=== PATIENT | female | born 1970 | race Two or more races ===

== ENCOUNTER → 2024-09-02 | Outpatient (CLI) | payer BC, SELFPAY ==
--- NOTE | 2024-09-02 08:28 | XR_ITS ---
Examination: Thoracolumbar spine 2 views Technique one AP lateral thoracolumbar spine 2 views Exam date and time: September 02, 2024 0844 hours INDICATIONS: Lower back pain radiating down the left leg beginning 4 weeks ago. FINDINGS: Lumbar dextroscoliosis 8 degrees No lumbar or visualized thoracic fracture Mild lumbar spondylosis No significant lumbar disc narrowing IMPRESSION: Lumbar dextroscoliosis 8 degrees No vertebral body fracture Mild lumbar spondylosis
== END | disposition home or self-care (01) ==
PROVIDERS: PCP Family Medicine; Referring Provider Family Medicine; Visit Provider Family Medicine
DX: M41.86 Other forms of scoliosis, lumbar region (principal); M47.816 Spondylosis without myelopathy or radiculopathy, lumbar region
CPT/HCPCS: 72080

== ENCOUNTER 2025-01-02 05:15 | Emergency (ER) | payer BC, SELFPAY ==
[2025-01-02 05:22] VITALS: BMI 24.4
--- NOTE | 2025-01-02 05:36 | EDNOTE_ITS ---
ED Back Injury Pain RME/HPI General Chief Complaint: Back Pain/Injury Stated Complaint: l LOW BACK PAIN RADIATING DOWN L LEG Time Seen by Provider: 01/02/25 05:36 Arrival date/time: 01/02/25 05:15 This is a case of a 54-year-old female who came into the emergency room due to lower back pain rating to his left lateral side of the thigh patient denies any injury or trauma patient have history of chronic low back pain for 6 months patient is scheduled to have MRI patient denies any numbness weakness tingling sensation incontinence to urine or stool Limitations: no limitations Related Data Home Medications ?Medication ?Instructions ?Recorded ?Confirmed lisinopril 40 mg tablet 40 mg PO QDAY 12/05/1712/15 metformin 1,000 mg tablet 1,000 mg PO QDAY 12/05/17 Previous Rx's ?Medication ?Instructions ?Recorded dapagliflozin propanediol 10 mg 10 mg PO QAM #30 tabs 10/27/18 tablet (Farxiga) lisinopril 40 mg tablet 40 mg PO QDAY #30 tabs 10/27 metoprolol succinate 100 mg 100 mg PO QDAY #30 ea 09/30 capsule sprinkle, ext. release 24 hr pen needle, diabetic 31 gauge x #30 ea 10/27/1807/03 (Pen Needle) blood sugar diagnostic #50 ea 10/28/18 blood-glucose meter #1 ea 10/28/18 lancets 31 gauge #100 ea 10/28/18 cyclobenzaprine 10 mg tablet 10 mg PO Q12H PRN muscle spasm #10 01/02/25 tabs tramadol 50 mg tablet 50 mg PO Q6H PRN pain #14 ta bs 01/02/25 Allergies Allergy/AdvReac Type Severity Reaction Status Date / Time No Known Allergies Allergy Verified 01/02/25 05:26 Review of Systems Review of Systems Systems Reviewed: All systems reviewed, normal except as documented Constitutional Constitutional: Reports system reviewed and no additional complaints, except as documented and Reports as per HPI ENT Ears, Nose, Mouth, and Throat: Denies neck pain Cardiovascular Cardiovascular: Reports system reviewed and no additional complaints, except as documented and Reports as per HPI Respiratory Respiratory: Reports system reviewed and no additional complaints, except as documented and Reports as per HPI Musculoskeletal Musculoskeletal: Reports system reviewed and no additional complaints, except as documented, Reports as per HPI, Denies abnormal gait, Denies arthralgias, Denies atrophy, Reports back pain, Denies deformity, Denies joint swelling, Denies limited range of motion, Denies loss of height, Denies muscle cramps, Denies muscle weakness, Denies myalgias, Denies neck pain, Denies numbness, Denies radiating pain into limb, Denies stiffness and Denies tingling Neurologic Neurologic: Reports system reviewed and no additional complaints, except as documented, Reports as per HPI, Denies abnormal gait, Denies numbness and Denies tingling Past Medical History Past Medical History NEUROLOGIC: Positive Migraine; Negative Cerebrovascular Accident, Transient Ischemic Attacks (TIA), Dementia, Alzheimer's Disease, Parkinson's Disease, Brain Tumor, Meningitis, Seizures, Epilepsy, Multiple Sclerosis, Cerebral Palsy, Amyotrophic Lateral Sclerosis (ALS/Janneth Gehrig's), Guillain-[place] Syndrome, Spina Bifida, Paralysis, Peripheral Neuropathy, Mack's Palsy, Subdural Hematoma, Head Trauma, Spinal Cord Injury or Traumatic Brain Injury CARDIAC: Positive Cardiac Disorders and Hypertension; Negative Myocardial Infarction, Cardiac Arrhythmia, Atrial Fibrillation, Angina, Heart Murmur, Coronary Artery Disease, Atherosclerotic Heart Disease, Peripheral Vascular Disease, Hypercholesterolemia, Aneurysm, Congestive Heart Failure, Congenital Heart Disease, Valvular Heart Disease, Rheumatic Fever, Cardiomyopathy, Edema, Pericarditis, Cellulitis, Deep Vein Thrombosis, Hypotension or Varicose Veins RESPIRATORY: Positive Bronchitis (Infant); Negative Chronic Obstructive Pulmonary Disease (COPD), Asthma, Emphysema, Pneumonia, Pulmonary Fibrosis, Cystic Fibrosis, Tuberculosis, Pulmonary Embolism, Pulmonary Edema or Sleep Apnea GASTROINTESTINAL: Positive Hemorrhoids (Flare ups); Negative Gastrointestinal Disorders, Hepatitis, Cirrhosis, Pancreatitis, Celiac Disease, Gall Bladder Disease, Gastrointestinal Bleed, Esophageal Varices, Pritchett's Esophagus, Colitis, Ulcerative Colitis, Diverticulitis, Diverticulosis, Ulcer, Colorectal Cancer, Irritable Bowel, Crohn's Disease, Obstructive Bowel, Hiatal Hernia, Gastroesophageal Reflux Disease or Obesity GENITOURINARY: Positive Kidney Stones (passed 17 years ago); Negative Genitourinary Disorders, Renal Disease, Polycystic Kidney Disease, Neurogenic Bladder, Inguinal Hernia, Dialysis, Prostate Cancer or Benign Prostatic Hyperplasia REPRODUCTIVE: Negative Breast Cancer, Endometriosis, Genital Herpes, Gonorrhea, Pelvic Inflammatory Disease, Previous Pregnancies, Syphilis, Testicular Cancer or Uterine Prolapse MUSCULOSKELETAL: Negative Musculoskeletal Disorders, Muscular Dystrophy, Myasthenia Gravis, Marfan's Syndrome, Bone Cancer, Arthritis, Rheumatoid Arthritis, Osteoporosis, Degenerative Disk Disease, Gout, Scoliosis, Carpal Tunnel Syndrome, Fibromyalgia, Fractures, Degenerative Joint Disease, Osteomyelitis or Poliovirus ENT: Negative Cataracts, Glaucoma, Blind, Retinal Detachment, Macular Degeneration, Ear Infection, Deafness, Head Trauma or Eye Prosthesis ENDOCRINE: Positive Endocrine Disorders and Diabetes Mellitus Type 2; Negative Diabetes Mellitus Type 1, Hypoglycemia, [place]'s Syndrome, Keith's Disease, Hyperthyroidism, Hypothyroidism, Parathyroid Disease, Pituitary Disease, Systemic Lupus Erythematosus, Syndrome of Inappropriate Antidiuretic Hormone (SIADH), Adrenal Disease or Graves' Disease HEMATOLOGIC: Negative Blood Disorders, Anemia, Leukemia, Hemophilia, Thalassemia, Sickle Cell Disease or Clotting Problems PSYCHO/SOCIAL: Negative Psychiatric Problems, Schizophrenia, Recreational Drug Use, Bipolar Disorder, Depression, Anxiety, Behavior Problems, Self-Mutilation, Attention Deficit Disorder, Attention Deficit Hyperactivity Disorder, Depression, Post Traumatic Stress Disorder or Eating Disorder OTHER HISTORY: Negative Hospitalization, Autoimmune Disease, Down Syndrome, Autism, Developmental Delay, Shingles, Falls, Organ Transplant, Chemotherapy, Radiation Therapy, Hyperbaric Therapy, MRSA, VRSA, Vancomycin-Resistant Enterococci, Human Immunodeficiency Virus (HIV), Chicken Pox, Measles, Mumps, Rubella ([place] Measles), Pertussis, Clostridium Difficile, Breast Cancer, Cervical Cancer, Colorectal Cancer, Lung Cancer, Ovarian Cancer, Prostate Cancer or Testicular Cancer Family History FAMILY HISTORY: Positive Family Cardiac Disorders (Open heart sx (father)), Family Cancer (Skin cancer/facial) and Family Surgery (Father-heart surgery, Blood clot brain, Mother facial skin); Negative Family Psychiatric Problems, Family Respiratory Disorders, Family Gastrointestinal Problems or Family Anesthesia Reaction Surgical History SURGICAL: Positive Section (); Negative Cardiac Surgery, Open Heart Surgery, Coronary Artery Bypass Graft, Valve Replacement, Vascular Surgery, Coronary Stent, Cardiac Catheterization, Pacemaker, Angiogram, Auto Implanted Cardiovert Defib, Carotid Endarterectomy, Endocrine Surgery, Thyroidectomy, Ear Surgery, Tympanostomy Tube, Eye Surgery, Nose Surgery, Oral Surgery, Tonsillectomy, Adenoidectomy, Cochlear Implant, Corneal Transplant, Throat Surgery, Abdominal Surgery, Tracheostomy, Gastric Bypass Surgery, Gastrostomy, Bowel Surgery, Nephrectomy, Transurethral Resection, Joint Replacement, Amputation, Open Reduction Internal Fixation, Arthroscopy, Neurologic Surgery, Brain Shunt, Mastectomy, Lumpectomy, Hysterectomy, Tubal Ligation, Vasectomy or Organ Transplant Social History SMOKING STATUS: Never smoker ED Exam General Limitations: Present no limitations General appearance: Present alert and in no apparent distress Head Head exam: Present atraumatic Eye Eye exam: Present normal appearance, PERRL and EOMI ENT ENT exam: Present normal exam, normal oropharynx and mucous membranes moist Neck Neck exam: Present normal inspection, full ROM and trachea midline Chest Chest inspection: Present normal inspection and symmetric chest wall rise Respiratory Respiratory exam: Present normal lung sounds bilaterally; Absent respiratory distress, wheezes, stridor, accessory muscle use or prolonged expiratory phase Cardiovascular Cardiovascular exam: Present regular rate, normal rhythm and normal heart sounds; Absent bradycardia, tachycardia, irregular rhythm, systolic murmur or diastolic murmur Abdominal Exam Abdominal exam: Present soft; Absent distention, tenderness, guarding, rebound or normal bowel sounds Extremities Exam Extremities exam: Present normal inspection and full ROM Expanded Lower Extremity Exam Hip/Pelvis exam: Present normal inspection and full ROM; Absent tenderness or swelling Knee exam: Present normal inspection and full ROM; Absent tenderness or swelling Lower leg exam: Present normal inspection and full ROM; Absent tenderness or swelling Back Exam Back exam: Present normal inspection, full ROM and tenderness (Mild tenderness to L1-L5 no crepitation no deformity no paraspinal no paravertebral vertebral tenderness leg raise exam is normal); Absent CVA tenderness (R), CVA tenderness (L), muscle spasm, paraspinal tenderness, vertebral tenderness, rashes, sciatic notch tenderness (R), sciatic notch tenderness (L), straight leg raise (R) or straight leg raise (L) Neurological Exam Neurological exam: Present alert, oriented X3 and CN II-XII intact Psychiatric Psychiatric exam: Present normal affect and normal mood Skin Skin exam: Present warm, dry, intact and normal color Course Quality Measures none Orders Category Date Time Status Dexamethasone Inj [Decadron Inj] Med 01/02/25 05:36 Once 10 mg IM X1 ONE HYDROcodone*/APAP 5/325 [[place] 5/325] Med 01/02/25 05:36 Once 1 tab PO X1 ONE Ketorolac Inj [Toradol Inj] Med 01/02/25 05:36 Once 30 mg IM X1 ONE Vital Signs Vital signs: Oxygen saturation normal Back Pain / Injury MDM Narrative MDM Narrative:: This is a case of a 54-year-old female who came into the emergency room due to lower back pain rating to his left lateral side of the thigh patient denies any injury or trauma patient have history of chronic low back pain for 6 months patient is scheduled to have MRI patient denies any numbness weakness tingling sensation incontinence to urine or stool physical examination patient is awake alert oriented not in distress nontoxic looking note left lower extremities exam is normal and unremarkable ROM intact neurovascular intact lower back exam L1 L5 mild tenderness no crepitation noted deformity no redness no cellulitis no paraspinal spinal no paravertebral tenderness no CVA tenderness leg raise exam is normal at this point no imaging was ordered no injury no trauma noted patient will follow-up with PCP and to ask about the schedule to MRI patient was given Toradol [place] for pain and dexamethasone for inflammation patient condition markedly improved she was also prescribed with tramadol and Flexeril patient was advised to see PCP to be referred to neurosurgeon for further evaluation and treatment of chronic low back pain and sciatica and pain management doctor for pain control Patient was discharged with comfortable condition walking with stable gait. Patient verbalized no further complains explained diagnosis and answered patient question. Patient is comfortable with the proposed management plan including the need to follow up with his/her primary care physician and any specialist if applicable Discussed patient for any urgent condition or worsening sx, He/She needed to go to emergency room immediately or call 911. Patient acknowledge the responsibility to follow up as instructed and to monitor her/his symptoms. For any persistence of the symptoms for more than 3-5 days return precaution advised. Discussed the result of the test and was given printed discharge instruction Patient data External records reviewed:: [facility] previous records Clinical information provided by:: patient Social determinants that could affect healthcare access:: none Patient has the following chronic illnesses:: None How is presenting disease/condition affected by chronic disease/condition?: no chronic disease Evaluation data The following diagnostics were reviewed and interpreted by me:: lab results, radiology exam(s) and other (specify) (None) Lab and/or radiology exams considered but not ordered:: None Interpretation Summary: None Medications / Prescriptions Medications or Prescriptions considered but not ordered:: Given Medication administrations:: Medication Administration History Discontinued Medications Hydrocodone Bitart/Acetaminophen (Hydrocodone/Apap 5/325 Tablet) 1 tab PO X1 ONE Stop: 01/02/25 05:37 Dexamethasone Sodium Phosphate (Dexamethasone Sod Phos Inj 10 Mg/Ml Vial) 10 mg IM X1 ONE Stop: 01/02/25 05:37 Ketorolac Tromethamine (Ketorolac Inj 60 Mg/2 Ml Vial) 30 mg IM X1 ONE Stop: 01/02/25 05:37 Given Consultations Consultation(s) initiated? (list below): No Diagnosis Differential diagnosis back pain/injury: sciatica and other (Chronic low back pain) Most likely diagnosis given after review of the tests above:: Chronic low back pain sciatica Admission Indicated Admission indicated?: not indicated Explain why admission is indicated or not indicated:: Not indicated Admission Request Was there a request for admission?: No Admission Attestation Admission request attestation: Not indicated Disposition Plan Disposition Plan: Discharge Discharge Attestation Discharge Attestation: The patient and all family members were given an opportunity to ask questions and understood the discharge instructions. Discharge instructions specifically effects, indications for sooner follow up or return to the emergency department, and the expected course of current diagnosis. Patient condition: Stable Discharge Plan Plan Patient Disposition: HOME (Self Care) Patient condition on transfer: Stable Prescriptions/Referrals Prescriptions/Med Rec: New tramadol 50 mg tablet 50 mg PO Q6H PRN (Reason: pain) Qty: 14 0RF cyclobenzaprine 10 mg tablet 10 mg PO Q12H PRN (Reason: muscle spasm) Qty: 10 0RF Rx Instructions: As needed for muscle spasm do not take with tramadol No Action metformin 1,000 mg tablet 1,000 mg PO QDAY lisinopril 40 mg tablet 40 mg PO QDAY (DME) pen needle, diabetic [Pen Needle] 31 gauge x 1/4 needle See Dose Instructions .ROUTE .MEDSUPPLY Qty: 30 2RF Dose Instruction: As directed Rx Instructions: As directed Farxiga 10 mg tablet 10 mg PO QAM Qty: 30 0RF lisinopril 40 mg tablet 40 mg PO QDAY Qty: 30 0RF metoprolol succinate 100 mg capsule,sprinkle,ER 24hr 100 mg PO QDAY Qty: 30 0RF (DME) blood sugar diagnostic strip See Dose Instructions .ROUTE .MEDSUPPLY Qty: 50 2RF Dose Instruction: As directed Rx Instructions: As directed ([facility]) blood-glucose meter kit See Dose Instructions .ROUTE .MEDSUPPLY Qty: 1 0RF Dose Instruction: As directed Rx Instructions: As directed (DME) lancets 31 gauge misc See Dose Instructions .ROUTE .MEDSUPPLY Qty: 100 0RF Dose Instruction: As directed Rx Instructions: As directed Problem List Clinical Impression: Chronic low back pain, Sciatica Patient/Caregiver Discharge Instructions Education Materials: Managing Chronic Pain, ED Back Care Tips, ED Back Pain (Acute or Chronic), ED Chronic Pain, ED Sciatica Additional Instructions: Follow-up with your primary care physician in 2 days for reevaluation and to be referred to a neurosurgeon for further evaluation and treatment of your chronic low back pain need MRI to rule out herniated disc and to be reevaluated for sciatica patient also need to be referred to pain management doctor for pain control Worsening symptoms or any emergent concerns such as numbness weakness tingling sensation incontinence to urine or stool call 911 or go to the nearest emergency room take your medication as directed ice pack and warm compress as needed for your pain Print Language: Portuguese Stand Alone Forms: Alisson Award Info., Patient Portal Info Letter MICHAEL/SHAKA Supervising Physician MICHAEL/SHAKA Supervising Physician: dr [email or web address]
[2025-01-02 05:50] VITALS: BP 191/80; PULSE 74; RESP 18; TEMP 36.4; O2SAT 99
[2025-01-02] MEDS: DEXAMETHASONE SOD PHOS INJ 10 MG/ML VIAL IM (06:17)
[2025-01-02] MEDS: HYDROcodone/APAP 5/325 TABLET 1 TAB PO (06:18)
[2025-01-02] MEDS: KETOROLAC INJ 60 MG/2 ML VIAL 30 MG IM (06:18)
== END 2025-01-02 06:25 | disposition home or self-care (01) ==
LOC: SERX 06:24
PROVIDERS: Emergency Provider Emergency Medicine; PCP Family Medicine
DX: M54.40 Lumbago with sciatica, unspecified side (principal)
CPT/HCPCS: 96372; 99283; J1100; J1885; A9270